=== PATIENT | male | born 1945 | race African-American/Black ===

== ENCOUNTER 2017-04-14 17:46 | Inpatient (IN) | payer MEDICARE, OTHER ==
[~2017-04-14] VITALS: Ht 172.7 cm; Wt 79.5 kg
[~2017-04-14 17:46] MED LIST: AMBI5TAB PO; ATOR10 PO; GABA300C3 PO; HYDR-3129 PO; LISI10 PO; NEUR100C PO; PERC10TA27 PO; PROT40TA PO
[2017-04-14 17:59] VITALS: BP 181/95; PULSE 115; RESP 16; O2SAT 98
--- NOTE | 2017-04-14 18:14 | PD ---
HPI Chief Complaint: Fall Time Seen by Provider: 18:04 Travel History International Travel<30 days: No Contact w/Intl Traveler<30days: No Traveled to known affect area: No History of Present Illness HPI 72-year-old male came to the emergency room with history of fall from a standing position 17 hours ago. Since then patient was laying on the floor prone unable to get out. He lives alone and was eventually found down and 911 was called. He was soaked in urine as per the paramedics. He was awake. Patient is very hard of hearing and at this point is a questionable reliability of history. He was complaining of neck pain and left-sided pain. Patient was tachycardic and hypertensive upon arrival. Patient usually is ambulatory. He lives by himself. PFSH Past Medical History Narrative Medical List of his past medical, surgical, social and family history was reviewed from the nursing note. Arthritis: Yes Asthma: No Blood Disorders: No Anxiety: No Depression: No Heart Rhythm Problems: No Cancer: No Cardiovascular Problems: Yes (htn) High Cholesterol: Yes Chemotherapy: No Chest Pain: No Congestive Heart Failure: No COPD: No Cerebrovascular Accident: Yes Diabetes: No Diminished Hearing: Yes (ALATNA) Endocrine: No Genitourinary: No Hypertension: Yes Immune Disorder: No Musculoskeletal: Yes (ARTHRITIS ) Neurologic: Yes (IN PT'S CHART IT STATES HX OF CVA, FAMILY DENIES) Psychiatric: No Reproductive: No Respiratory: No Radiation Therapy: No Sleep Apnea: No Thyroid Disease: No Influenza Vaccination: No Past Surgical History Other Surgery: Yes (cervical ) Social History Alcohol Use: No Tobacco Use: Yes (1 pack per week) Substance Use: No Allergies-Medications (Allergen,Severity, Reaction): Coded Allergies: prednisone (Unverified Allergy, Severe, HICCUPING, 04/15/17) penicillin G (Unverified Allergy, Mild, Hives, 04/15/17) Comments List of his allergies reviewed from the nursing note. Reported Meds & Prescriptions Reported Meds & Active Scripts Active Active Prescriptions or Reported Medications Unobtainable Narrative Medication List of his home medications reviewed from the nursing note. Review of Systems Except as stated in HPI: all other systems reviewed are Neg Physical Exam Narrative GENERAL: Awake, alert, very hard of hearing, moderate distress SKIN: Focused skin assessment warm/dry. Stage 1 decubitus on the right and left subcostal margins and Stage 3 decubitus on the left tibial tubercle. HEAD: Atraumatic. Normocephalic. EYES: Pupils equal and round. No scleral icterus. No injection or drainage. ENT: No nasal bleeding or discharge. Mucous membranes pink and moist. NECK: Trachea midline. No JVD. Patient has a c-collar on his back CARDIOVASCULAR: Regular rate and rhythm. No murmur appreciated. RESPIRATORY: No accessory muscle use. Clear to auscultation. Breath sounds equal bilaterally. GASTROINTESTINAL: Abdomen soft, non-tender, nondistended. Hepatic and splenic margins not palpable. MUSCULOSKELETAL: No obvious deformities. No clubbing. No cyanosis. No edema. NEUROLOGICAL: Awake and alert. No obvious cranial nerve deficits. Motor strength in bilateral lower extremity is 2 out of 5 mostly because of pain. Normal speech. PSYCHIATRIC: Appropriate mood and affect; insight and judgment normal. Data Data Last Documented VS Vital Signs Date Time Temp Pulse Resp B/P Pulse Ox O2 Delivery O2 Flow Rate FiO2 04/14/17 17:59 115 16 181/95 98 Room Air Orders Electrocardiogram (04/14/17 18:22) Complete Blood Count With Diff (04/14/17 18:22) Comprehensive Metabolic Panel (04/14/17 18:22) Creatine Kinase (Cpk) (04/14/17 18:22) Prothrombin Time / Inr (Pt) (04/14/17 18:22) Troponin I (04/14/17 18:22) Urinalysis - C+S If Indicated (04/14/17 18:22) Chest, Single Ap (04/14/17 18:22) Ct Brain W/O Iv Contrast(Rout) (04/14/17 18:22) Blood Glucose (04/14/17 18:22) Ecg Monitoring (04/14/17 18:22) Iv Access Insert/Monitor (04/14/17 18:22) Oximetry (04/14/17 18:22) Sodium Chloride 0.9% Flush (Ns Flush) (04/14/17 18:30) Sodium Chlor 0.9% 1000 Ml Inj (Ns 1000 M (04/14/17 18:22) Ct Cerv Spine W/O Contrast (04/14/17 ) Morphine Inj (Morphine Inj) (04/14/17 19:15) Pelvis, Ap Only (Routine) (04/14/17 ) Aspirin Chew (Aspirin Chew) (04/14/17 20:00) Nitroglycerin 2% Oint (Nitroglycerin 2% (04/14/17 20:00) CKMB (04/14/17 18:40) CKMB% (04/14/17 18:40) Admit Order (Ed Use Only) (04/14/17 20:19) Labs Laboratory Tests Test 04/14/17 18:40 White Blood Count 9.2 TH/MM3 Red Blood Count 4.96 MIL/MM3 Hemoglobin 13.8 GM/DL Hematocrit 42.2 % Mean Corpuscular Volume 85.0 FL Mean Corpuscular Hemoglobin 27.9 PG Mean Corpuscular Hemoglobin 32.8 % Concent Red Cell Distribution Width 14.1 % Platelet Count 191 TH/MM3 Mean Platelet Volume 9.6 FL Neutrophils (%) (Auto) 80.0 % Lymphocytes (%) (Auto) 12.6 % Monocytes (%) (Auto) 7.1 % Eosinophils (%) (Auto) 0.1 % Basophils (%) (Auto) 0.2 % Neutrophils # (Auto) 7.3 TH/MM3 Lymphocytes # (Auto) 1.2 TH/MM3 Monocytes # (Auto) 0.6 TH/MM3 Eosinophils # (Auto) 0.0 TH/MM3 Basophils # (Auto) 0.0 TH/MM3 CBC Comment DIFF FINAL Differential Comment Prothrombin Time 11.2 SEC Prothromb Time International 1.0 RATIO Ratio Urine Color YELLOW Urine Turbidity CLEAR Urine pH 5.5 Urine Specific [place] 1.016 Urine Protein 30 mg/dL Urine Glucose (UA) NEG mg/dL Urine Ketones 80 mg/dL Urine Occult Blood SMALL Urine Nitrite NEG Urine Bilirubin NEG Urine Urobilinogen LESS THAN 2.0 MG/DL Urine Leukocyte Esterase NEG Urine RBC 1 /hpf Urine WBC 1 /hpf Urine Squamous Epithelial <1 /hpf Cells Microscopic Urinalysis Comment CATH-CULT NOT IND Sodium Level 137 MEQ/L Potassium Level 4.1 MEQ/L Chloride Level 103 MEQ/L Carbon Dioxide Level 23.7 MEQ/L Anion Gap 10 MEQ/L Blood Urea Nitrogen 21 MG/DL Creatinine 1.07 MG/DL Estimat Glomerular Filtration 82 ML/MIN Rate Random Glucose 85 MG/DL Calcium Level 8.9 MG/DL Total Bilirubin 0.4 MG/DL Aspartate Amino Transf 68 U/L (AST/SGOT) Alanine Aminotransferase 28 U/L (ALT/SGPT) Alkaline Phosphatase 97 U/L Total Creatine Kinase 2508 U/L Creatine Kinase MB 57.5 NG/ML Creatine Kinase MB % 2.3 % Troponin I 0.06 NG/ML Total Protein 8.1 GM/DL Albumin 3.4 GM/DL MDM Medical Decision Making Medical Screen Exam Complete: Yes Emergency Medical Condition: Yes Medical Record Reviewed: Yes Differential Diagnosis UTI, rhabdomyolysis, lateral right abnormality, intracranial bleed Narrative Course 7:12 PM awaiting for the CT head and C-spine. Awaiting for the blood test result. Case has been signed over to the oncoming ER physician. He will require to be admitted given his disability currently. Patient has been given a liter of IV fluid bolus and pain medication. Procedures EKG Prior to Arrival: No Scripts Unable to Obtain Active Prescriptions or Reported Meds Primitivo Rios MD Apr 14, 2017 18:14
[2017-04-14] MEDS ORDERED: SODIUM CHLOR 0.9% 1000 ML INJ 1,000 ML IV SCH (18:22)
[2017-04-14] MEDS ORDERED: SODIUM CHLORIDE 0.9% FLUSH 5 ML FLUSH IV FLUSH PRN (18:30)
--- NOTE | 2017-04-14 18:49 | RADRPT ---
EXAM DATE/TIME: 04/14/2017 18:18 [facility] COMPARISON: CHEST SINGLE AP, April 21, 2015, 14:58. INDICATIONS : Syncope MEDICAL HISTORY : None. SURGICAL HISTORY : None. ENCOUNTER: Initial ACUITY: 1 day PAIN SCORE: 0/10 LOCATION: chest FINDINGS: Trace consolidation seen both lung bases, left slightly more so than right. No pleural effusion seen. No pneumothorax. Heart size stable, upper limits of normal. CONCLUSION: Minimal bibasilar consolidation. Ziyad Peña MD on April 14, 2017 at 18:46 Board Certified Radiologist. This report was verified electronically.
[2017-04-14 19:03] LABS: BLOOD, URINE SMALL (NEG); COMMENT (UR) CATH-CULT NOT IND; CULTURE IF INDICATED CATH CULTURE NOT IND; GLUCOSE,URINE NEG (NEG); KETONE, URINE 80 mg/dL (NEG); NITRITE,URINE NEG (NEG); PH, URINE 5.5 (5.0-8.5); SQUAMOUS EPITHELIAL CELL URINE <1 /hpf (0-5); URINE COLOR YELLOW (YELLW/STRAW)
[2017-04-14 19:06] LABS: AUTOMATED NEUTROPHIL # 7.3 TH/MM3 (1.8-7.7); BASOPHIL % 0.2 % (0.0-2.0); EOSINOPHIL % 0.1 % (0.0-4.0); HEMATOCRIT 42.2 % (39.0-51.0); HEMO FLAGS DIFF FINAL; LYMPH % 12.6 % (9.0-44.0); LYMPHOCYTE # 1.2 TH/MM3 (1.0-4.8); MEAN CORPUSCULAR HEMOGLOBIN 27.9 PG (27.0-34.0); MEAN CORPUSCULAR HGB CONC 32.8 % (32.0-36.0); MONO % 7.1 % (0.0-8.0); PLATELET COUNT 191 TH/MM3 (150-450); RED BLOOD COUNT 4.96 MIL/MM3 (4.50-5.90); RED CELL DISTRIBUTION WIDTH 14.1 % (11.6-17.2); WHITE BLOOD COUNT 9.2 TH/MM3 (4.0-11.0)
--- NOTE | 2017-04-14 19:07 | PD ---
Physical Exam Narrative General: The patient is a well-developed well-nourished male, extremely hard of hearing, however and no other acute distress. When asked if he has pain he reports that he has pain all over.. Head and Neck exam: Head is normocephalic atraumatic. Eyes: EOMI, pupils are equal round and reactive to light. Nose: Midline septum with pink mucous membranes Mouth: Dentition unremarkable. Moist mucus membranes. Posterior oropharynx is not erythematous. No tonsillar hypertrophy. Uvula midline. Airway patent. Neck: No palpable lymphadenopathy. No nuchal rigidity. No thyromegaly. No spinous process tenderness to palpation. Does have a cervical collar in place related to his fall. Cardiovascular: Sinus tachycardia in the low 100 without murmurs, gallops, or rubs. No pulse deficit to the extremities and simultaneous auscultation and palpation of his radial artery. Lungs: Clear to auscultation bilaterally. No wheezes, rhonchi, or rales. Abdomen: Soft, without tenderness to palpation in all 4 quadrants of the abdomen. No guarding, rebound, or rigidity. Normal bowel sounds are audible. No tenderness on palpation of McBurney's point. Negative Beacon sign. Extremities: No clubbing, cyanosis, or edema. 2+ pulses in all 4 extremities. No calf tenderness on palpation. No deformity or crepitus on examination of upper and lower extremities. The patient reports having muscle tenderness on palpation of the muscles of the biceps and triceps bilaterally. The patient also reports having tenderness on palpation along the musculature of the quadriceps bilaterally. Neurologic Exam: Cranial nerves 2-12 were intact on exam. Strength is 4/5 in all 4 extremities. No sensory deficits noted. Skin Exam: No rash noted. Intact skin that is warm and dry. Data Data Last Documented VS Vital Signs Date Time Temp Pulse Resp B/P Pulse Ox O2 Delivery O2 Flow Rate FiO2 04/14/17 17:59 115 16 181/95 98 Room Air Orders Electrocardiogram (04/14/17 18:22) Complete Blood Count With Diff (04/14/17 18:22) Comprehensive Metabolic Panel (04/14/17 18:22) Creatine Kinase (Cpk) (04/14/17 18:22) Prothrombin Time / Inr (Pt) (04/14/17 18:) Troponin I (04/14/17 18:22) Urinalysis - C+S If Indicated (04/14/17 18:22) Chest, Single Ap (04/14/17 18:22) Ct Brain W/O Iv Contrast(Rout) (04/14/17 18:22) Blood Glucose (04/14/17 18:22) Ecg Monitoring (04/14/17 18:22) Iv Access Insert/Monitor (04/14/17 18:22) Oximetry (04/14/17 18:22) Sodium Chloride 0.9% Flush (Ns Flush) (04/14/17 18:30) Sodium Chlor 0.9% 1000 Ml Inj (Ns 1000 M (04/14/17 18:22) Ct Cerv Spine W/O Contrast (04/14/17 ) Morphine Inj (Morphine Inj) (04/14/17 19:15) Pelvis, Ap Only (Routine) (04/14/17 ) Aspirin Chew (Aspirin Chew) (04/14/17 20:00) Nitroglycerin 2% Oint (Nitroglycerin 2% (04/14/17 20:00) CKMB (04/14/17 18:40) CKMB% (04/14/17 18:40) Admit Order (Ed Use Only) (04/14/17 20:19) Labs Laboratory Tests Test 04/14/17 18:40 White Blood Count 9.2 TH/MM3 Red Blood Count 4.96 MIL/MM3 Hemoglobin 13.8 GM/DL Hematocrit 42.2 % Mean Corpuscular Volume 85.0 FL Mean Corpuscular Hemoglobin 27.9 PG Mean Corpuscular Hemoglobin 32.8 % Concent Red Cell Distribution Width 14.1 % Platelet Count 191 TH/MM3 Mean Platelet Volume 9.6 FL Neutrophils (%) (Auto) 80.0 % Lymphocytes (%) (Auto) 12.6 % Monocytes (%) (Auto) 7.1 % Eosinophils (%) (Auto) 0.1 % Basophils (%) (Auto) 0.2 % Neutrophils # (Auto) 7.3 TH/MM3 Lymphocytes # (Auto) 1.2 TH/MM3 Monocytes # (Auto) 0.6 TH/MM3 Eosinophils # (Auto) 0.0 TH/MM3 Basophils # (Auto) 0.0 TH/MM3 CBC Comment DIFF FINAL Differential Comment Prothrombin Time 11.2 SEC Prothromb Time International 1.0 RATIO Ratio Urine Color YELLOW Urine Turbidity CLEAR Urine pH 5.5 Urine Specific [place] 1.016 Urine Protein 30 mg/dL Urine Glucose (UA) NEG mg/dL Urine Ketones 80 mg/dL Urine Occult Blood SMALL Urine Nitrite NEG Urine Bilirubin NEG Urine Urobilinogen LESS THAN 2.0 MG/DL Urine Leukocyte Esterase NEG Urine RBC 1 /hpf Urine WBC 1 /hpf Urine Squamous Epithelial <1 /hpf Cells Microscopic Urinalysis Comment CATH-CULT NOT IND Sodium Level 137 MEQ/L Potassium Level 4.1 MEQ/L Chloride Level 103 MEQ/L Carbon Dioxide Level 23.7 MEQ/L Anion Gap 10 MEQ/L Blood Urea Nitrogen 21 MG/DL Creatinine 1.07 MG/DL Estimat Glomerular Filtration 82 ML/MIN Rate Random Glucose 85 MG/DL Calcium Level 8.9 MG/DL Total Bilirubin 0.4 MG/DL Aspartate Amino Transf 68 U/L (AST/SGOT) Alanine Aminotransferase 28 U/L (ALT/SGPT) Alkaline Phosphatase 97 U/L Total Creatine Kinase 2508 U/L Creatine Kinase MB 57.5 NG/ML Creatine Kinase MB % 2.3 % Troponin I 0.06 NG/ML Total Protein 8.1 GM/DL Albumin 3.4 GM/DL [facility] Medical Record Reviewed: Yes Supervised Visit with ROBBIE: No Interpretation(s) Last Impressions Head CT 04/14/171821 Signed Impressions: Service Date/Time: Friday, April 14, 2017 18:46 - CONCLUSION: 1. No acute intracranial abnormality. 2. Chronic white matter changes. 3. 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 4. Sinus disease. Ziyad Peña MD Chest X-Ray 04/14/171821 Signed Impressions: Service Date/Time: Friday, April 14, 2017 18:18 - CONCLUSION: Minimal bibasilar consolidation. Ziyad Peña MD Cervical Spine CT 04/14/17 0000 Signed Impressions: Service Date/Time: Friday, April 14, 2017 18:46 - CONCLUSION: Surgical and degenerative changes of the cervical spine as above again noted. No fracture or subluxation or other acute abnormality. Ziyad Peña MD Narrative Course During the course of the patients emergency department visit, the patients history, examination, and differential diagnosis were reviewed with the patient. The patient had IV access obtained and blood work sent for analysis. The patient's case was checked out to me by Dr. Rios. Please see her complete history and physical. The patient had an EKG done on arrival. The patient's EKG shows a sinus tachycardia rate of [address]-T wave abnormalities that are nonspecific, no acute ST segment elevation is noted. QRS duration is 97 ms, QTC 387 ms. The patient was initially provided normal saline 1 L IV fluid bolus. The patients laboratory studies were reviewed and remarkable for a white count of 9.2, hemoglobin 13.8, platelets 191 with 80.0 neutrophils, CMP is remarkable for a BUN of 21, GFR of 82, AST 68, troponin I 0.06, albumin 3.4. The patient denies having any chest pain at this time. He denies having any shortness of breath. The patient was placed on aspirin 162 mg by mouth 1, nitroglycerin 1 inch the chest wall. Urinalysis shows 30 protein, 80 ketones, small occult blood. PT 11.2, INR 1.0, CPK came back elevated at 2508 with an MB percent of 2.3. Radiology studies were reviewed and remarkable for a chest x-ray that shows minimal bibasilar consolidation, atelectasis or infiltrate. Pelvis x-ray shows an intact pelvis. CT scan of the brain shows no acute intracranial abnormality , chronic white matter changes, old right frontal lobe and right cerebellar infarcts, sinus disease noted. CT scan of the C-spine shows surgical and degenerative changes of the cervical spine, no fracture or subluxation or other acute abnormality. The patients results were discussed with the patient, including the plan of care. I explained that further testing and/ or monitoring is indicated based on the patients history, examination, and/ or laboratory findings. Therefore, I recommended admission for additional evaluation. The patient expressed understanding and was agreeable with this plan. The patient was admitted to the hospital in stable condition and [facility] Physician Communication Physician Communication The patient's case is discussed with Dr. Akins who did agree to admit the patient for further evaluation and treatment at this time. Diagnosis Primary Impression: Fall Qualified Code: W19.XXXA - Fall, initial encounter Additional Impressions: Generalized weakness Rhabdomyolysis Qualified Code: T79.6XXA - Traumatic rhabdomyolysis, initial encounter Admitting Information Admitting Physician Requests: Admit Scripts Unable to Obtain Active Prescriptions or Reported Meds Tiago,Cheyanne D. MD Apr 14, 2017 19:07
--- NOTE | 2017-04-14 19:09 | RADRPT ---
EXAM DATE/TIME: 04/14/2017 18:46 [facility] COMPARISON: CT BRAIN W/O CONTRAST, June 23, 2015, 16:42. INDICATIONS : Fall last night RADIATION DOSE: 58.62 CTDIvol (mGy) MEDICAL HISTORY : Cerebrovascular disease. Hypertension. Arthritis.Cardio SURGICAL HISTORY : Orthopedic ENCOUNTER: Initial ACUITY: 1 day PAIN SCALE: 8/10 LOCATION: cranial TECHNIQUE: Multiple contiguous axial images were obtained of the head. Using automated exposure control and adj ustment of the mA and/or kV according to patient size, radiation dose was kept as low as reasonably a chievable to obtain optimal diagnostic quality images. DICOM format image data is available electro nically for review and comparison. FINDINGS: No intracranial hemorrhage or hematoma. No mass, mass effect or midline shift. Areas of encephalomala stefany compatible with old infarcts again seen, right frontal lobe and in the right cerebellum. There is chronic low-attenuation in the periventricular white matter. Mucoperiosteal thickening seen of the visualized left maxillary air cell. CONCLUSION: 1. No acute intracranial abnormality. 2. Chronic white matter changes. 3. 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 4. Sinus disease. Ziyad Peña MD on April 14, 2017 at 19:06 Board Certified Radiologist. This report was verified electronically.
[2017-04-14 19:10] LABS: PROTHROMBIN TIME - PATIENT 11.2 SEC (9.8-11.6)
[2017-04-14] MEDS ORDERED: MORPHINE SULFATE 4 MG/ML INJ IV PUSH ONE (19:15)
--- NOTE | 2017-04-14 19:19 | RADRPT ---
EXAM DATE/TIME: 04/14/2017 18:46 [facility] COMPARISON: CT CERVICAL SPINE W/O CONTRAST, June 23, 2015, 16:42. INDICATIONS : Fall last night RADIATION DOSE: 20.26 CTDIvol (mGy) MEDICAL HISTORY : Arthritis. Cardiovascular disease Cerebrovascular disease.HTN SURGICAL HISTORY : Orthopedic ENCOUNTER: Initial ACUITY: 1 day PAIN SCALE: 8/10 LOCATION: neck TECHNIQUE: Volumetric scanning of the cervical spine was performed. Multiplanar reconstructions in the sagittal, coronal and oblique axial planes were performed. Using automated exposure control and adjustment o f the mA and/or kV according to patient size, radiation dose was kept as low as reasonably achievable to obtain optimal diagnostic quality images. DICOM format image data is available electronically f or review and comparison. FINDINGS: Cervical spine alignment is normal. No fracture seen paravertebral bodies have normal height. Mild disc space narrowing with left greater than right uncovertebral and facet osteoarthritis again s een at C2/C3. There is moderate to severe disc space narrowing with mild to moderate uncovertebral fa cet osteoarthritis at C5/C6. Previous discectomy/corpectomy with interbody and anterior instrumentation noted at C3/C4 and C4/C5, both levels solidly fused in normal alignment. CONCLUSION: Surgical and degenerative changes of the cervical spine as above again noted. No fracture or subluxat ion or other acute abnormality. Ziyad Peña MD on April 14, 2017 at 19:16 Board Certified Radiologist. This report was verified electronically.
[2017-04-14 19:27] LABS: ANION GAP 10 MEQ/L (5-15); AST (GOT) 68 U/L (15-37); BICARBONATE 23.7 MEQ/L (21.0-32.0); BLOOD UREA NITROGEN 21 MG/DL (7-18); CHLORIDE 103 MEQ/L (98-107); GLOMERULAR FILTRATION RATE 82 ML/MIN (>89); POTASSIUM 4.1 MEQ/L (3.5-5.1); SODIUM (NA) 137 MEQ/L (136-145)
[2017-04-14 19:28] LABS: ALT (GPT) 28 U/L (12-78)
[2017-04-14 19:31] LABS: ALKALINE PHOSPHATASE 97 U/L (45-117); TOTAL BILIRUBIN ADULT 0.4 MG/DL (0.2-1.0)
[2017-04-14 19:57] LABS: CREATINE KINASE 2508 U/L (39-308)
[2017-04-14] MEDS ORDERED: NITROGLYCERIN 2% OINT 1 GM PACKET TOPICAL ONE (20:00)
[2017-04-14] MEDS ORDERED: ASPIRIN 81 MG CHEW TAB CHEW ONE (20:00)
--- NOTE | 2017-04-14 20:04 | RADRPT ---
EXAM DATE/TIME: 04/14/2017 19:38 [facility] COMPARISON: No previous studies available for comparison. INDICATIONS : Evaluate pelvis for trauma, fell MEDICAL HISTORY : Arthritis. Cardiovascular disease Cerebrovascular disease.HTN SURGICAL HISTORY : Orthopedic ENCOUNTER: Initial ACUITY: 1 day PAIN SCORE: 0/10 LOCATION: Pelvis FINDINGS: A single frontal view of the pelvis demonstrates no evidence of fracture. The bony pelvic ring is in tact. Bony mineralization is normal. The soft tissues are intact. CONCLUSION: Intact pelvis. Ziyad Peña MD on April 14, 2017 at 20:03 Board Certified Radiologist. This report was verified electronically.
[2017-04-14 20:21] LABS: CKMB 57.5 NG/ML (0.5-3.6)
[2017-04-14 20:45] VITALS: BP 199/84; PULSE 114; RESP 20; TEMP 98.6; O2SAT 98
[2017-04-14] MEDS ORDERED: SODIUM CHLORIDE 0.9% FLUSH 10 ML FLUSH IV FLUSH PRN (20:45)
[2017-04-14] MEDS ORDERED: NALOXONE HCL 0.4 MG/ML AMP IV PRN (20:45)
--- NOTE | 2017-04-14 21:13 | HHI.HP ---
[facility] Service [facility] Primary Care Physician Ziyad Allen MD Admission Diagnosis Fall, Rhabdomyolysis, generalized weakness Diagnoses: Travel History International Travel<30 Days: No Contact w/Intl Traveler <30 Da: No Traveled to Known Affected Are: No History of Present Illness History from patient, ER physician communication, and review of medical records. Patient reported that he had fallen down at home and was not able to get up. He initially told me that he was walking to the bathroom and fell backwards and hit his head. Later he stated he may have fallen from the bed itself. He denies being on blood thinners. He however does not remember the exact names and doses of his medications. He states he takes lisinopril. He denies any premonitory symptoms prior to the fall such as chest pain/ palpitations/dizziness/visual disturbance/focal weakness. He denies tripping on anything that he could be collapsed. He reports he missed a pain on the floor for more than 12 hours. He states his sister called 911. Patient states that he was taught able to get up from the floor at all. He thinks he is weak all over. He states he usually uses a walker. He lives alone. Apart from the above, patient denies any recent fever/nausea/vomiting/diarrhea/ urinary burning or pain on urination. He denies any hematemesis/hematochezia/melena/hematuria. He does report of cough. He is noted to be coughing during examination as well. He reports that his cough is yellowish and greenish in color. Review of Systems Except as stated in HPI: all other systems reviewed are Neg Past Family Social History Past Medical History Hypertension Hyperlipidemia Possible vertigopatient reports he takes a medicine for dizziness on a when necessary basis. Hard of hearing Past Surgical History Cervical spine surgery Allergies: Coded Allergies: prednisone (Unverified Allergy, Severe, HICCUPING, 04/15/17) penicillin G (Unverified Allergy, Mild, Hives, 04/15/17) Family History Denies any family history of any medical conditions. Social History States he used to smoke. Quit about 6 months ago. Denies any alcohol abuse or drug abuse. Physical Exam Vital Signs Vital Signs Date Time Temp Pulse Resp B/P Pulse Ox O2 Delivery O2 Flow Rate FiO2 04/14/17 20:49 20 04/14/17 20:45 98.6 114 20 199/84 98 Room Air 04/14/17 17:59 115 16 181/95 98 Room Air Physical Exam GENERAL: This is elderly gentleman, lying in bed, not in acute distress. BP 170/ 82, saturation 98% on RA . Coughing during examination SKIN: No rashes, ecchymoses or lesions. Cool and dry. HEAD: Atraumatic. Normocephalic. No temporal or scalp tenderness. EYES: No scleral icterus. No injection or drainage. ENT: Nose without bleeding, purulent drainage or septal hematoma. Airway patent. NECK: Trachea midline. No JVD Supple, nontender, no meningeal signs. CARDIOVASCULAR: tachycardic 108, regular rhythm without murmurs, gallops, or rubs. RESPIRATORY: Clear to auscultation. Breath sounds equal bilaterally. No wheezes , rales, or rhonchi. Limited exam due to pt's body position lying flat on bed and with pain even on minimal movement GASTROINTESTINAL: Abdomen soft, non-tender, nondistended. . No guarding. MUSCULOSKELETAL: Extremities without clubbing, cyanosis, or edema. No joint tenderness, effusion, or edema noted. bilateral UE and LE with pain even on minimal movement and touch NEUROLOGICAL: Awake and alert. Motor and sensory grossly within normal limits. Normal speech. Laboratory Laboratory Tests Test 04/14/17 18:40 White Blood Count 9.2 Red Blood Count 4.96 Hemoglobin 13.8 Hematocrit 42.2 Mean Corpuscular Volume 85.0 Mean Corpuscular Hemoglobin 27.9 Mean Corpuscular Hemoglobin 32.8 Concent Red Cell Distribution Width 14.1 Platelet Count 191 Mean Platelet Volume 9.6 Neutrophils (%) (Auto) 80.0 Lymphocytes (%) (Auto) 12.6 Monocytes (%) (Auto) 7.1 Eosinophils (%) (Auto) 0.1 Basophils (%) (Auto) 0.2 Neutrophils # (Auto) 7.3 Lymphocytes # (Auto) 1.2 Monocytes # (Auto) 0.6 Eosinophils # (Auto) 0.0 Basophils # (Auto) 0.0 CBC Comment DIFF FINAL Differential Comment Prothrombin Time 11.2 Prothromb Time International 1.0 Ratio Urine Color YELLOW Urine Turbidity CLEAR Urine pH 5.5 Urine Specific [place] 1.016 Urine Protein 30 Urine Glucose (UA) NEG Urine Ketones 80 Urine Occult Blood SMALL Urine Nitrite NEG Urine Bilirubin NEG Urine Urobilinogen LESS THAN 2.0 Urine Leukocyte Esterase NEG Urine RBC 1 Urine WBC 1 Urine Squamous Epithelial <1 Cells Microscopic Urinalysis Comment CATH-CULT NOT IND Sodium Level 137 Potassium Level 4.1 Chloride Level 103 Carbon Dioxide Level 23.7 Anion Gap 10 Blood Urea Nitrogen 21 Creatinine 1.07 Estimat Glomerular Filtration 82 Rate Random Glucose 85 Calcium Level 8.9 Total Bilirubin 0.4 Aspartate Amino Transf 68 (AST/SGOT) Alanine Aminotransferase 28 (ALT/SGPT) Alkaline Phosphatase 97 Total Creatine Kinase 2508 Creatine Kinase MB 57.5 Creatine Kinase MB % 2.3 Troponin I 0.06 Total Protein 8.1 Albumin 3.4 Result Diagram: 04/14/17 1840 04/14/17 1840 Imaging Last [address] 04/14/171821 Signed Impressions: Service Date/Time: Friday, April 14, 2017 18:46 - CONCLUSION: 1. No acute intracranial abnormality. 2. Chronic white matter changes. 3. 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 4. Sinus disease. Ziyad Peña MD Chest X-Ray 04/14/171821 Signed Impressions: Service Date/Time: Friday, April 14, 2017 18:18 - CONCLUSION: Minimal bibasilar consolidation. Ziyad Peña MD Pelvis X-Ray 04/14/17 0000 Signed Impressions: Service Date/Time: Friday, April 14, 2017 19:38 - CONCLUSION: Intact pelvis. Ziyad Peña MD Cervical Spine CT 04/14/17 0000 Signed Impressions: Service Date/Time: Friday, April 14, 2017 18:46 - CONCLUSION: Surgical and degenerative changes of the cervical spine as above again noted. No fracture or subluxation or other acute abnormality. Ziyad Peña MD Assessment and Plan Assessment and Plan Impression: Status post fall Rhabdomyolysis Tachycardia Pneumoniawith chest x-ray evidence of bilateral consolidations Plan fall precautions pt consult ooob to chair iv hydration will follow cpk Discussed Condition With patient Physician Certification 2 Midnight Certification Type: Admission for Inpatient Services Order for Inpatient Services The services are ordered in accordance with Medicare regulations or non- Medicare payer requirements, as applicable. In the case of services not specified as inpatient-only, they are appropriately provided as inpatient services in accordance with the 2-midnight benchmark. Estimated LOS (days): 3 days is the estimated time the patient will need to remain in the hospital, assuming treatment plan goals are met and no additional complications. Post-Hospital Plan: Home Marcos Akins MD Apr 14, 2017 21:13
[2017-04-14 21:18] VITALS: BP 172/82; PULSE 120; RESP 20
[2017-04-14] MEDS: SODIUM CHLOR 0.9% 1000 ML INJ 1,000 ML IV SCH (21:30)
[2017-04-14] MEDS: LEVOFLOXACIN 750 MG PREMIX INJ 150 ML IV SCH (22:00)
[2017-04-14 22:02] VITALS: BP 133/66; PULSE 109; RESP 20; O2SAT 99
[2017-04-14] MEDS: SODIUM CHLORIDE 0.9% FLUSH 10 ML FLUSH IV FLUSH SCH (22:37)
[2017-04-15] VITALS: BP 138/66; PULSE 104; PULSE 119; RESP 18; TEMP 99.4; O2SAT 97
[2017-04-15 04:00] VITALS: BP 123/72; PULSE 88; PULSE 89; RESP 19; TEMP 96.7; O2SAT 97
--- NOTE | 2017-04-15 05:09 | EKG ---
Date Performed: 04/14/2017 Time Performed: 19:10:43 PTAGE: 72 years EKG: SINUS TACHYCARDIA Nonspecific ST and T wave abnormalities ABNORMAL ECG Compared to the PREVIOUS TRACING rate has increased PREVIOUS TRACIN04/13/2015 04.37 DOCTOR: Manolo Richard Interpretating Date/Time 04/15/2017 05:07:25
[2017-04-15 07:41] LABS: AUTOMATED NEUTROPHIL # 2.8 TH/MM3 (1.8-7.7); BASOPHIL % 0.3 % (0.0-2.0); EOSINOPHIL # 0.1 TH/MM3 (0-0.4); EOSINOPHIL % 1.4 % (0.0-4.0); HEMATOCRIT 34.9 % (39.0-51.0); HEMO FLAGS DIFF FINAL; LYMPH % 30.5 % (9.0-44.0); LYMPHOCYTE # 1.6 TH/MM3 (1.0-4.8); MEAN CORPUSCULAR HEMOGLOBIN 27.9 PG (27.0-34.0); MEAN CORPUSCULAR HGB CONC 33.3 % (32.0-36.0); MONO % 13.7 % (0.0-8.0); NEUT % 54.1 % (16.0-70.0); PLATELET COUNT 168 TH/MM3 (150-450); RED BLOOD COUNT 4.15 MIL/MM3 (4.50-5.90); RED CELL DISTRIBUTION WIDTH 14.3 % (11.6-17.2); WHITE BLOOD COUNT 5.2 TH/MM3 (4.0-11.0)
[2017-04-15 08:00] VITALS: BP 135/71; PULSE 95; RESP 20; TEMP 98.6; O2SAT 97
--- NOTE | 2017-04-15 08:07 | HHI.PR ---
Subjective Remarks in no acute distress. complaining of some pain to the right shoulder. afebrile. d/w the RN. Objective Vitals Vital Signs Date Time Temp Pulse Resp B/P Pulse Ox O2 Delivery O2 Flow Rate FiO2 04/15/17 04:00 96.7 88 19 123/72 97 04/15/17 04:00 89 04/15/17 00:00 119 04/15/17 00:00 99.4 104 18 138/66 97 04/14/17 22:50 97 Room Air 04/14/17 22:02 109 20 133/66 99 Room Air 04/14/17 21:18 120 20 172/82 Room Air 04/14/17 20:49 20 04/14/17 20:45 98.6 114 20 199/84 98 Room Air 04/14/17 17:59 115 16 181/95 98 Room Air I/O 04/14/17 04/14/17 04/14/17 04/15/17 04/15/17 04/15/17 07:00 15:00 23:00 07:00 15:00 23:00 Intake Total 1280 ml Output Total 550 ml Balance 730 ml Intake Oral 480 ml IV Total 800 ml Output Urine Total 550 ml Result Diagram: 04/15/17 0644 04/14/17 1840 Imaging Last Impressions Head CT 04/14/171821 Signed Impressions: Service Date/Time: Friday, April 14, 2017 18:46 - CONCLUSION: 1. No acute intracranial abnormality. 2. Chronic white matter changes. 3. 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 4. Sinus disease. Ziyad Peña MD Chest X-Ray 04/14/171821 Signed Impressions: Service Date/Time: Friday, April 14, 2017 18:18 - CONCLUSION: Minimal bibasilar consolidation. Ziyad Peña MD Pelvis X-Ray 04/14/17 0000 Signed Impressions: Service Date/Time: Friday, April 14, 2017 19:38 - CONCLUSION: Intact pelvis. Ziyad Peña MD Cervical Spine CT 04/14/17 0000 Signed Impressions: Service Date/Time: Friday, April 14, 2017 18:46 - CONCLUSION: Surgical and degenerative changes of the cervical spine as above again noted. No fracture or subluxation or other acute abnormality. Ziyad Peña MD Objective Remarks GENERAL: This is a well-nourished, well-developed patient, in no apparent distress. CARDIOVASCULAR: Regular rate and regular rhythm without murmurs, gallops, or rubs. RESPIRATORY: Clear to auscultation. Breath sounds equal bilaterally. No wheezes , rales, or rhonchi. GASTROINTESTINAL: Abdomen soft, non-tender, nondistended. Normal, active bowel sounds MUSCULOSKELETAL: Extremities without clubbing, cyanosis, or edema- some tenderness over the right shoulder. NEURO: Alert & Oriented x4 to person, place, time, situation. Moves all ext x4 Medications and IVs Current Medications IV Flush 2 ml 2 ml UNSCH PRN IV FLUSH FLUSH AFTER USING IV ACCESS Last administered on 04/14/17 20:45; Start 04/14/17 at 18:30; Stop 04/14/17 at 21:17 ; Status DC Sodium Chloride (NS 1000 ml Inj) 1,000 ml @ 1,000 mls/hr Q1H IV Last administered on 04/14/17 18:22; Start 04/14/17 at 18:22; Stop 04/14/17 at 19:21 ; Status DC Morphine Sulfate (Morphine Inj) 4 mg ONCE ONCE IV PUSH Last administered on 19:15; Start 04/14/17 at 19:15; Stop 04/14/17 at 19:16; Status DC Aspirin (Aspirin Chew) 162 mg ONCE ONCE CHEW Last administered on 04/14/17 20 :00; Start 04/14/17 at 20:00; Stop 04/14/17 at 20:01; Status DC Nitroglycerin (Nitroglycerin 2% Oint) 1 inch ONCE ONCE TOPICAL Last administered on 04/14/17 20:00; Start 04/14/17 at 20:00; Stop 04/14/17 at 20:01 ; Status DC Sodium Chloride (NS Flush) 2 ml UNSCH PRN IV FLUSH FLUSH AFTER USING IV ACCESS ; Start 04/14/17 at 20:45 Sodium Chloride (NS Flush) 2 ml BID IV FLUSH ; Start 04/14/17 at 21:00 Naloxone HCl 0.4 mg 0.4 mg UNSCH PRN IV SEE LABEL COMMENTS; Start 04/14/17 at 20:45 Levofloxacin/ Dextrose 150 ml @ 100 mls/hr Q24H IV Last administered on 22:00; Start 04/14/17 at 22:00 Sodium Chloride (NS 1000 ml Inj) 1,000 ml @ 100 mls/hr Q10H IV Last administered on 04/14/17 21:30; Start 04/14/17 at 21:30 A/P Assessment and Plan A/P - fall with Rhabdomyolysis fall precautions- consulted PT- continue IV fluid and monitor the renal function and CPK level -mild elevation of troponin with no chest pain or acute St-T changes-likely due to the fall and rhabdo- will continue to trend the enzymes. -right shoulder pain; start pain control- XR of the right shoulder -Pneumoniawith chest x-ray evidence of bilateral consolidations; continue antibiotics- -DVT prophylaxis with Milton Nance MD Apr 15, 2017 08:07
[2017-04-15 08:09] LABS: ANION GAP 5 MEQ/L (5-15); AST (GOT) 76 U/L (15-37); BICARBONATE 27.8 MEQ/L (21.0-32.0); BLOOD UREA NITROGEN 20 MG/DL (7-18); CHLORIDE 107 MEQ/L (98-107); GLOMERULAR FILTRATION RATE 82 ML/MIN (>89); POTASSIUM 3.5 MEQ/L (3.5-5.1); SODIUM (NA) 140 MEQ/L (136-145)
[2017-04-15] MEDS ORDERED: ACETAMINOPHEN 325 MG TAB PO PRN (08:15)
[2017-04-15 08:27] LABS: ALKALINE PHOSPHATASE 74 U/L (45-117); ALT (GPT) 26 U/L (12-78); CREATINE KINASE 3578 U/L (39-308); TOTAL BILIRUBIN ADULT 0.3 MG/DL (0.2-1.0)
[2017-04-15] MEDS: SODIUM CHLORIDE 0.9% FLUSH 10 ML FLUSH IV FLUSH SCH ×2 (08:47→21:00)
[2017-04-15] MEDS: ENOXAPARIN SODIUM 40 MG/0.4 ML SYRINGE SQ SCH (08:47)
[2017-04-15] MEDS: ACETAMINOPHEN/HYDROcodone 325 MG/5 MG TAB PO PRN ×3 (08:47→21:54)
[2017-04-15 08:48] LABS: CKMB 68.9 NG/ML (0.5-3.6)
--- NOTE | 2017-04-15 12:33 | RADRPT ---
EXAM DATE/TIME: 04/15/2017 11:31 [facility] COMPARISON: SHOULDER RIGHT LTD (2VWS), April 13, 2015, 4:55. CHEST SINGLE AP, April 21, 2015, 14:58. CHEST SI NGLE AP, April 14, 2017, 18:18. INDICATIONS : Fall, right shoulder pain. MEDICAL HISTORY : None. SURGICAL HISTORY : None. ENCOUNTER: Subsequent ACUITY: 2 days PAIN SCORE: 10/10 LOCATION: Right shoulder FINDINGS: Multiple view examination of the right shoulder demonstrates no evidence of fracture or dislocation. There is hypertrophic change at the acromioclavicular joint. There is prominent hypertrophic change at the periphery of the acromion. There is calcification seen around the greater tubercle. CONCLUSION: No acute abnormality seen. There is hypertrophic change at the acromion, the acromioclavicular joint, and to a lesser degree around the greater tubercle. Ziyad Galvan MD on April 15, 2017 at 12:28 Board Certified Radiologist. This report was verified electronically.
[2017-04-15 13:30] VITALS: BP 134/90; PULSE 96; RESP 20
[2017-04-15 16:00] VITALS: BP 150/87; PULSE 84; RESP 18; TEMP 97.4; O2SAT 98
[2017-04-15 20:00] VITALS: BP 143/76; PULSE 97; RESP 20; TEMP 98.2; O2SAT 98
[2017-04-15] MEDS: LEVOFLOXACIN 750 MG PREMIX INJ 150 ML IV SCH (21:53)
[2017-04-15] MEDS: SODIUM CHLOR 0.9% 1000 ML INJ 1,000 ML IV SCH (21:53)
[2017-04-16] VITALS (7 sets, daily range): BP systolic 121–194; BP diastolic 60–93; PULSE 73–106; RESP 20–21; TEMP 96.5–99.3; O2SAT 96–99
[2017-04-16 07:02] LABS: BICARBONATE 27.6 MEQ/L (21.0-32.0); POTASSIUM 3.6 MEQ/L (3.5-5.1)
[2017-04-16 07:36] LABS: CKMB 26.7 NG/ML (0.5-3.6)
--- NOTE | 2017-04-16 08:26 | HHI.PR ---
Subjective Remarks resting comfortably with no distress. has some pain to the right shoulder. no chest pain or sob. no other new complaints. Objective Vitals Vital Signs Date Time Temp Pulse Resp B/P Pulse Ox O2 Delivery O2 Flow Rate FiO2 04/16/17 04:00 99.3 79 20 129/60 97 04/16/17 00:00 96.9 82 20 137/74 98 04/15/17 20:00 98.2 97 20 143/76 98 04/15/17 16:00 97.4 84 18 150/87 98 04/15/17 13:30 96 20 134/90 I/O 04/15/17 04/15/17 04/15/17 04/16/17 04/16/17 04/16/17 07:00 15:00 23:00 07:00 15:00 23:00 Intake Total 1280 ml 1200 ml 480 ml 120 ml 1200 ml Output Total 550 ml 650 ml 1700 ml 600 ml Balance 730 ml 550 ml -1220 ml -480 ml 1200 ml Intake Oral 480 ml 1200 ml 480 ml 120 ml IV Total 800 ml 1200 ml Output Urine Total 550 ml 650 ml 1700 ml 600 ml Result Diagram: 04/15/17 0644 04/16/17 0539 Imaging Last Impressions Shoulder X-Ray 04/15/17 0000 Signed Impressions: Service Date/Time: Saturday, April 15, 2017 11:31 - CONCLUSION: No acute abnormality seen. There is hypertrophic change at the acromion, the acromioclavicular joint, and to a lesser degree around the greater tubercle. Ziyad Galvan MD Head CT 04/14/17 182 Signed Impressions: Service Date/Time: Friday, April 14, 2017 18:46 - CONCLUSION: 1. No acute intracranial abnormality. 2. Chronic white matter changes. 3. 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 4. Sinus disease. Ziyad Peña MD Chest X-Ray 04/14/17 182 Signed Impressions: Service Date/Time: Friday, April 14, 2017 18:18 - CONCLUSION: Minimal bibasilar consolidation. Ziyad Peña MD Pelvis X-Ray 04/14/17 0000 Signed Impressions: Service Date/Time: Friday, April 14, 2017 19:38 - CONCLUSION: Intact pelvis. Ziyad Peña MD Cervical Spine CT 04/14/17 0000 Signed Impressions: Service Date/Time: Friday, April 14, 2017 18:46 - CONCLUSION: Surgical and degenerative changes of the cervical spine as above again noted. No fracture or subluxation or other acute abnormality. Ziyad Peña MD Objective Remarks GENERAL: This is a well-nourished, well-developed patient, in no apparent distress. CARDIOVASCULAR: Regular rate and regular rhythm without murmurs, gallops, or rubs. RESPIRATORY: Clear to auscultation. Breath sounds equal bilaterally. No wheezes , rales, or rhonchi. GASTROINTESTINAL: Abdomen soft, non-tender, nondistended. Normal, active bowel sounds MUSCULOSKELETAL: Extremities without clubbing, cyanosis, or edema- some tenderness over the right shoulder. NEURO: Alert & Oriented x4 to person, place, time, situation. Moves all ext x4 Procedures none Medications and IVs Current Medications IV Flush 2 ml 2 ml UNSCH PRN IV FLUSH FLUSH AFTER USING IV ACCESS Last administered on 04/14/17 20:45; Start 04/14/17 at 18:30; Stop 04/14/17 at 21:17 ; Status DC Sodium Chloride (NS 1000 ml Inj) 1,000 ml @ 1,000 mls/hr Q1H IV Last administered on 04/14/17 18:22; Start 04/14/17 at 18:22; Stop 04/14/17 at 19:21 ; Status DC Morphine Sulfate (Morphine Inj) 4 mg ONCE ONCE IV PUSH Last administered on 19:15; Start 04/14/17 at 19:15; Stop 04/14/17 at 19:16; Status DC Aspirin (Aspirin Chew) 162 mg ONCE ONCE CHEW Last administered on 04/14/17 20 :00; Start 04/14/17 at 20:00; Stop 04/14/17 at 20:01; Status DC Nitroglycerin (Nitroglycerin 2% Oint) 1 inch ONCE ONCE TOPICAL Last administered on 04/14/17 20:00; Start 04/14/17 at 20:00; Stop 04/14/17 at 20:01 ; Status DC Sodium Chloride (NS Flush) 2 ml UNSCH PRN IV FLUSH FLUSH AFTER USING IV ACCESS ; Start 04/14/17 at 20:45 Sodium Chloride (NS Flush) 2 ml BID IV FLUSH ; Start 04/14/17 at 21:00 Naloxone HCl 0.4 mg 0.4 mg UNSCH PRN IV SEE LABEL COMMENTS; Start 04/14/17 at 20:45 Levofloxacin/ Dextrose 150 ml @ 100 mls/hr Q24H IV Last administered on 21:53; Start 04/14/17 at 22:00 Sodium Chloride (NS 1000 ml Inj) 1,000 ml @ 100 mls/hr Q10H IV Last administered on 04/15/17 21:53; Start 04/14/17 at 21:30 Acetaminophen (Tylenol) 650 mg Q4H PRN PO FEVER/PAIN 1-5; Start 04/15/17 at 08: 15 Acetaminophen/ Hydrocodone Bitart ([place] 5-325 Mg) 1 tab Q6H PRN PO PAIN 6-10 Last administered on 04/15/17 21:54; Start 04/15/17 at 08:15 Enoxaparin Sodium (Lovenox Inj) 40 mg Q24H SQ Last administered on 04/15/17 08 :47; Start 04/15/17 at 09:00 A/P Assessment and Plan A/P - fall with Rhabdomyolysis fall precautions- consulted PT- continue IV fluid and monitor the renal function and CPK level -mild elevation of troponin with no chest pain or acute St-T changes-likely due to the fall and rhabdo- -right shoulder pain; XR of the right shoulder with no acute abnormality- continue pain control- consult OT. -Pneumoniawith chest x-ray evidence of bilateral consolidations; continue antibiotics- -DVT prophylaxis with Lovenox Discharge Planning dc planning to SNF within the next couple of days if stable. Milton Singh MD Apr 16, 2017 08:26
[2017-04-16] MEDS: ACETAMINOPHEN/HYDROcodone 325 MG/5 MG TAB PO PRN ×3 (08:59→20:32)
[2017-04-16] MEDS: ENOXAPARIN SODIUM 40 MG/0.4 ML SYRINGE SQ SCH (08:59)
[2017-04-16] MEDS: SODIUM CHLORIDE 0.9% FLUSH 10 ML FLUSH IV FLUSH SCH ×2 (08:59→20:33)
[2017-04-16] MEDS: SODIUM CHLOR 0.9% 1000 ML INJ 1,000 ML IV SCH ×2 (09:12→13:30)
[2017-04-16] MEDS ORDERED: ENALAPRILAT 1.25 MG/ML VIAL IV PUSH PRN (11:45)
[2017-04-16] MEDS: amLODIPine BESYLATE 5 MG TAB PO SCH (13:42)
[2017-04-16] MEDS ORDERED: NEUR300C PO (20:07)
[2017-04-16] MEDS ORDERED: LISI-515 PO (20:07)
[2017-04-16] MEDS ORDERED: HYDR-3366 PO (20:07)
[2017-04-16] MEDS ORDERED: SIMV10TA PO (20:07)
[2017-04-16] MEDS: LEVOFLOXACIN 750 MG PREMIX INJ 150 ML IV SCH (20:33)
[2017-04-17] VITALS (10 sets, daily range): BP systolic 138–170; BP diastolic 77–84; PULSE 70–78; RESP 16–20; TEMP 97.2–98.9; O2SAT 97–98
[2017-04-17] MEDS: SODIUM CHLOR 0.9% 1000 ML INJ 1,000 ML IV SCH ×2 (00:31→12:24)
[2017-04-17] MEDS: ACETAMINOPHEN/HYDROcodone 325 MG/5 MG TAB PO PRN ×3 (03:46→14:50)
[2017-04-17] MEDS: ENOXAPARIN SODIUM 40 MG/0.4 ML SYRINGE SQ SCH (08:07)
[2017-04-17] MEDS: amLODIPine BESYLATE 5 MG TAB PO SCH (08:08)
--- NOTE | 2017-04-17 08:23 | HHI.PR ---
Subjective Remarks resting comfortably with no distress. no fever. pain to the right shoulder is better today. d/w the RN. Objective Vitals Vital Signs Date Time Temp Pulse Resp B/P Pulse Ox O2 Delivery O2 Flow Rate FiO2 04/17/17 04:00 72 04/17/17 04:00 97.9 76 19 159/77 97 04/17/17 00:22 78 04/17/17 00:00 98.9 70 20 170/81 98 04/16/17 20:06 73 04/16/17 20:00 97.6 76 20 169/87 96 04/16/17 16:17 96.5 82 21 176/83 99 04/16/17 12:15 97.0 81 21 180/77 96 04/16/17 08:39 98.2 76 21 194/93 97 I/O 04/16/17 04/16/17 04/16/17 04/17/17 04/17/17 04/17/17 06:59 14:59 22:59 06:59 14:59 22:59 Intake Total 120 ml 1680 ml 480 ml 240 ml Output Total 600 ml 1050 ml 600 ml 875 ml Balance -480 ml 630 ml -120 ml -635 ml Intake Oral 120 ml 480 ml 480 ml 240 ml IV Total 1200 ml Output Urine Total 600 ml 1050 ml 600 ml 875 ml # Bowel Movements 1 Result Diagram: 04/15/17 0644 04/16/17 0539 Imaging Last Impressions Shoulder X-Ray 04/15/17 0000 Signed Impressions: Service Date/Time: Saturday, April 15, 2017 11:31 - CONCLUSION: No acute abnormality seen. There is hypertrophic change at the acromion, the acromioclavicular joint, and to a lesser degree around the greater tubercle. Ziyad Galvan MD Head CT 04/14/171821 Signed Impressions: Service Date/Time: Friday, April 14, 2017 18:46 - CONCLUSION: 1. No acute intracranial abnormality. 2. Chronic white matter changes. 3. 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 4. Sinus disease. Ziyad Peña MD Chest X-Ray 04/14/171821 Signed Impressions: Service Date/Time: Friday, April 14, 2017 18:18 - CONCLUSION: Minimal bibasilar consolidation. Ziyad Peña MD Pelvis X-Ray 04/14/17 0000 Signed Impressions: Service Date/Time: Friday, April 14, 2017 19:38 - CONCLUSION: Intact pelvis. Ziyad Peña MD Cervical Spine CT 04/14/17 0000 Signed Impressions: Service Date/Time: Friday, April 14, 2017 18:46 - CONCLUSION: Surgical and degenerative changes of the cervical spine as above again noted. No fracture or subluxation or other acute abnormality. Ziyad Peña MD Objective Remarks GENERAL: This is a well-nourished, well-developed patient, in no apparent distress. CARDIOVASCULAR: Regular rate and regular rhythm without murmurs, gallops, or rubs. RESPIRATORY: Clear to auscultation. Breath sounds equal bilaterally. No wheezes , rales, or rhonchi. GASTROINTESTINAL: Abdomen soft, non-tender, nondistended. Normal, active bowel sounds MUSCULOSKELETAL: Extremities without clubbing, cyanosis, or edema- some tenderness over the right shoulder- better ROM today. NEURO: Alert & Oriented x4 to person, place, time, situation. Moves all ext x4 Procedures none Medications and IVs Current Medications IV Flush 2 ml 2 ml UNSCH PRN IV FLUSH FLUSH AFTER USING IV ACCESS Last administered on 04/14/17 20:45; Start 04/14/17 at 18:30; Stop 04/14/17 at 21:17 ; Status DC Sodium Chloride (NS 1000 ml Inj) 1,000 ml @ 1,000 mls/hr Q1H IV Last administered on 04/14/17 18:22; Start 04/14/17 at 18:22; Stop 04/14/17 at 19:21 ; Status DC Morphine Sulfate (Morphine Inj) 4 mg ONCE ONCE IV PUSH Last administered on 19:15; Start 04/14/17 at 19:15; Stop 04/14/17 at 19:16; Status DC Aspirin (Aspirin Chew) 162 mg ONCE ONCE CHEW Last administered on 04/14/17 20 :00; Start 04/14/17 at 20:00; Stop 04/14/17 at 20:01; Status DC Nitroglycerin (Nitroglycerin 2% Oint) 1 inch ONCE ONCE TOPICAL Last administered on 04/14/17 20:00; Start 04/14/17 at 20:00; Stop 04/14/17 at 20:01 ; Status DC Sodium Chloride (NS Flush) 2 ml UNSCH PRN IV FLUSH FLUSH AFTER USING IV ACCESS ; Start 04/14/17 at 20:45 Sodium Chloride (NS Flush) 2 ml BID IV FLUSH ; Start 04/14/17 at 21:00 Naloxone HCl 0.4 mg 0.4 mg UNSCH PRN IV SEE LABEL COMMENTS; Start 04/14/17 at 20:45 Levofloxacin/ Dextrose 150 ml @ 100 mls/hr Q24H IV Last administered on 20:33; Start 04/14/17 at 22:00 Sodium Chloride (NS 1000 ml Inj) 1,000 ml @ 100 mls/hr Q10H IV Last administered on 04/17/17 00:31; Start 04/14/17 at 21:30 Acetaminophen (Tylenol) 650 mg Q4H PRN PO FEVER/PAIN 1-5; Start 04/15/17 at 08: 15 Acetaminophen/ Hydrocodone Bitart ([place] 5-325 Mg) 1 tab Q6H PRN PO PAIN 6-10 Last administered on 04/17/17 08:07; Start 04/15/17 at 08:15 Enoxaparin Sodium (Lovenox Inj) 40 mg Q24H SQ Last administered on 04/17/17 08 :07; Start 04/15/17 at 09:00 Amlodipine Besylate (Norvasc) 5 mg DAILY PO Last administered on 04/17/17 08: 08; Start 04/16/17 at 13:00 Enalaprilat (Vasotec Inj) 1.25 mg Q8H PRN IV PUSH SBP> OR = 180, DBP> OR = 100 ; Start 04/16/17 at 11:45 Diphenhydramine HCl (Benadryl) 25 mg ONCE ONCE PO Last administered on 00:29; Start 04/17/17 at 00:00; Stop 04/17/17 at 00:01; Status DC A/P Assessment and Plan A/P - fall with Rhabdomyolysis fall precautions- consulted PT- continue IV fluid and monitor the renal function and CPK level -mild elevation of troponin with no chest pain or acute St-T changes-likely due to the fall and rhabdo- -right shoulder pain; XR of the right shoulder with no acute abnormality- continue pain control- consult OT. -Pneumoniawith chest x-ray evidence of bilateral consolidations; continue antibiotics- -DVT prophylaxis with Lovenox Discharge Planning dc planning to SNF within the next 24 hrs if stable- pending the CPK level trend. Milton Singh MD Apr 17, 2017 08:23
[2017-04-17] MEDS ORDERED: HYDR-3366 PO (08:27)
[2017-04-17] MEDS ORDERED: LEVO500T8 PO (08:27)
[2017-04-17] MEDS: SODIUM CHLORIDE 0.9% FLUSH 10 ML FLUSH IV FLUSH SCH ×2 (09:00→21:00)
[2017-04-17] MEDS: PRAVASTATIN SOD 20 MG TAB PO SCH (09:00)
[2017-04-17] MEDS: LISINOPRIL 20 MG TAB PO SCH (09:46)
[2017-04-17] MEDS: GABAPENTIN 300 MG CAP PO SCH ×3 (09:46→17:49)
[2017-04-17 10:50] LABS: CKMB 6.3 NG/ML (0.5-3.6)
[2017-04-17] MEDS ORDERED: ACETAMINOPHEN/HYDROcodone 325 MG/5 MG TAB PO PRN (19:44)
[2017-04-17] MEDS: LEVOFLOXACIN 750 MG PREMIX INJ 150 ML IV SCH (21:01)
[2017-04-17] MEDS ORDERED: diphenhydrAMINE HCL 25 MG CAP PO ONE ×2 (21:15)
[2017-04-18] VITALS: BP 157/85; PULSE 69; RESP 16; TEMP 97.6; O2SAT 98
[2017-04-18 00:03] VITALS: PULSE 74
[2017-04-18] MEDS: SODIUM CHLOR 0.9% 1000 ML INJ 1,000 ML IV SCH ×2 (00:08→05:30)
[2017-04-18 04:00] VITALS: BP 155/81; PULSE 71; PULSE 77; RESP 16; TEMP 99.6; O2SAT 96
[2017-04-18 08:00] VITALS: BP 127/79; PULSE 79; RESP 18; TEMP 99.9; O2SAT 98
--- NOTE | 2017-04-18 08:08 | HHI.PR ---
Subjective Remarks f/u; rhabdo/ pneumonia resting comfortably with no distress. pain to the right shoulder is better. no fever. d/w the RN and no acute issues over night. Objective Vitals Vital Signs Date Time Temp Pulse Resp B/P Pulse Ox O2 Delivery O2 Flow Rate FiO2 04/18/17 04:00 99.6 77 16 155/81 96 04/18/17 04:00 71 04/18/17 00:03 74 04/18/17 00:00 97.6 69 16 157/85 98 04/17/17 20:06 72 04/17/17 20:00 97.2 77 16 155/81 98 04/17/17 16:31 73 04/17/17 16:00 97.2 75 18 138/78 97 04/17/17 16:00 16 04/17/17 12:00 98.0 76 16 158/82 98 04/17/17 08:21 77 I/O 04/17/17 04/17/17 04/17/17 04/18/17 04/18/17 04/18/17 06:59 14:59 22:59 06:59 14:59 22:59 Intake Total 240 ml 1509 ml 2245 ml Output Total 875 ml 1500 ml 1035 ml 1400 ml Balance -635 ml 9 ml -1035 ml 845 ml Intake Oral 240 ml 640 ml 650 ml IV Total 869 ml 1595 ml Output Urine Total 875 ml 1500 ml 1035 ml 1400 ml # Bowel Movements 0 0 Result Diagram: 04/15/17 0644 04/16/17 0539 Imaging Last Impressions Shoulder X-Ray 04/15/17 0000 Signed Impressions: Service Date/Time: Saturday, April 15, 2017 11:31 - CONCLUSION: No acute abnormality seen. There is hypertrophic change at the acromion, the acromioclavicular joint, and to a lesser degree around the greater tubercle. Ziyad Galvan MD Head CT 04/14/171821 Signed Impressions: Service Date/Time: Friday, April 14, 2017 18:46 - CONCLUSION: 1. No acute intracranial abnormality. 2. Chronic white matter changes. 3. 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 4. Sinus disease. Ziyad Peña MD Chest X-Ray 04/14/171821 Signed Impressions: Service Date/Time: Friday, April 14, 2017 18:18 - CONCLUSION: Minimal bibasilar consolidation. Ziyad Peña MD Pelvis X-Ray 04/14/17 0000 Signed Impressions: Service Date/Time: Friday, April 14, 2017 19:38 - CONCLUSION: Intact pelvis. Ziyad Peña MD Cervical Spine CT 04/14/17 0000 Signed Impressions: Service Date/Time: Friday, April 14, 2017 18:46 - CONCLUSION: Surgical and degenerative changes of the cervical spine as above again noted. No fracture or subluxation or other acute abnormality. Ziyad Peña MD Objective Remarks GENERAL: This is a well-nourished, well-developed patient, in no apparent distress. CARDIOVASCULAR: Regular rate and regular rhythm without murmurs, gallops, or rubs. RESPIRATORY: Clear to auscultation. Breath sounds equal bilaterally. No wheezes , rales, or rhonchi. GASTROINTESTINAL: Abdomen soft, non-tender, nondistended. Normal, active bowel sounds MUSCULOSKELETAL: Extremities without clubbing, cyanosis, or edema- some tenderness over the right shoulder- better ROM today. NEURO: Alert & Oriented x4 to person, place, time, situation. Moves all ext x4 Procedures none Medications and IVs Current Medications IV Flush 2 ml 2 ml UNSCH PRN IV FLUSH FLUSH AFTER USING IV ACCESS Last administered on 04/14/17 20:45; Start 04/14/17 at 18:30; Stop 04/14/17 at 21:17 ; Status DC Sodium Chloride (NS 1000 ml Inj) 1,000 ml @ 1,000 mls/hr Q1H IV Last administered on 04/14/17 18:22; Start 04/14/17 at 18:22; Stop 04/14/17 at 19:21 ; Status DC Morphine Sulfate (Morphine Inj) 4 mg ONCE ONCE IV PUSH Last administered on 19:15; Start 04/14/17 at 19:15; Stop 04/14/17 at 19:16; Status DC Aspirin (Aspirin Chew) 162 mg ONCE ONCE CHEW Last administered on 04/14/17 20 :00; Start 04/14/17 at 20:00; Stop 04/14/17 at 20:01; Status DC Nitroglycerin (Nitroglycerin 2% Oint) 1 inch ONCE ONCE TOPICAL Last administered on 04/14/17 20:00; Start 04/14/17 at 20:00; Stop 04/14/17 at 20:01 ; Status DC Sodium Chloride (NS Flush) 2 ml UNSCH PRN IV FLUSH FLUSH AFTER USING IV ACCESS ; Start 04/14/17 at 20:45 Sodium Chloride (NS Flush) 2 ml BID IV FLUSH ; Start 04/14/17 at 21:00 Naloxone HCl 0.4 mg 0.4 mg UNSCH PRN IV SEE LABEL COMMENTS; Start 04/14/17 at 20:45 Levofloxacin/ Dextrose 150 ml @ 100 mls/hr Q24H IV Last administered on 21:01; Start 04/14/17 at 22:00 Sodium Chloride (NS 1000 ml Inj) 1,000 ml @ 100 mls/hr Q10H IV Last administered on 04/18/17 00:08; Start 04/14/17 at 21:30 Acetaminophen (Tylenol) 650 mg Q4H PRN PO FEVER/PAIN 1-5; Start 04/15/17 at 08: 15 Acetaminophen/ Hydrocodone Bitart ([place] 5-325 Mg) 1 tab Q6H PRN PO PAIN 6-10 Last administered on 04/17/17 14:50; Start 04/15/17 at 08:15; Stop 04/17/17 at 19:44; Status DC Enoxaparin Sodium (Lovenox Inj) 40 mg Q24H SQ Last administered on 04/17/17 08 :07; Start 04/15/17 at 09:00 Amlodipine Besylate (Norvasc) 5 mg DAILY PO Last administered on 04/17/17 08: 08; Start 04/16/17 at 13:00; Status Hold Enalaprilat (Vasotec Inj) 1.25 mg Q8H PRN IV PUSH SBP> OR = 180, DBP> OR = 100 ; Start 04/16/17 at 11:45 Diphenhydramine HCl (Benadryl) 25 mg ONCE ONCE PO Last administered on 00:29; Start 04/17/17 at 00:00; Stop 04/17/17 at 00:01; Status DC Gabapentin (Neurontin) 300 mg TID PO Last administered on 04/17/17 17:49; Start 04/17/17 at 09:00 Lisinopril (Prinivil) 20 mg DAILY PO Last administered on 04/17/17 09:46; Start 04/17/17 at 09:00 Pravastatin Sodium (Pravachol) 20 mg DAILY PO ; Start 04/17/17 at 09:00 Acetaminophen/ Hydrocodone Bitart ([place] 5-325 Mg) 1 tab Q4H PRN PO PAIN 6-10 Last administered on 04/17/17 21:03; Start 04/17/17 at 19:44 Diphenhydramine HCl (Benadryl) 25 mg ONCE ONCE PO Last administered on 00:06; Start 04/17/17 at 21:15; Stop 04/17/17 at 21:16; Status DC A/P Assessment and Plan A/P - fall with Rhabdomyolysis fall precautions- consulted PT- received IV fluid- CPK trended down. -mild elevation of troponin with no chest pain or acute St-T changes-likely due to the fall and rhabdo- -right shoulder pain; XR of the right shoulder with no acute abnormality- continue pain control- consulted OT. -Pneumoniawith chest x-ray evidence of bilateral consolidations; continue antibiotics- -DVT prophylaxis with Lovenox Discharge Planning dc planning to SNF today- pending the CPK level. see med list. f/u; pcp. d/w the patient and RN. time spent 31 min. Milton Singh MD Apr 18, 2017 08:08
[2017-04-18] MEDS ORDERED: HYDR-3288 PO (08:13)
--- NOTE | 2017-04-18 08:14 | HHI.DCPOC ---
Discharge Care Plan Diagnosis: (1) Fall Your Health Problems Are: Difficulty with ADL Goals to Promote Your Health * To prevent worsening of your condition and complications * To maintain your health at the optimal level Directions to Meet Your Goals Take your medications as prescribed Follow your dietary instruction Follow activity as directed Keep your appointments as scheduled Take your immunizations and boosters as scheduled If your symptoms worsen call your PCP, if no PCP go to Urgent Care Center or Emergency Room Smoking is Dangerous to Your Health. Avoid second hand smoke Call the 24-hour hour crisis hotline for domestic abuse at Milton Singh MD Apr 18, 2017 08:13
[2017-04-18] MEDS: GABAPENTIN 300 MG CAP PO SCH ×3 (08:42→18:17)
[2017-04-18] MEDS: ENOXAPARIN SODIUM 40 MG/0.4 ML SYRINGE SQ SCH (08:42)
[2017-04-18] MEDS: PRAVASTATIN SOD 20 MG TAB PO SCH (08:42)
[2017-04-18] MEDS: LISINOPRIL 20 MG TAB PO SCH (08:42)
[2017-04-18] MEDS: ACETAMINOPHEN/HYDROcodone 325 MG/7.5 MG TAB PO PRN ×2 (08:44→13:18)
[2017-04-18] MEDS: SODIUM CHLORIDE 0.9% FLUSH 10 ML FLUSH IV FLUSH SCH (09:00)
[2017-04-18 10:10] LABS: CKMB 2.2 NG/ML (0.5-3.6)
--- NOTE | 2017-04-18 10:53 | HHI.DS ---
Discharge Summary Admission Date Apr 14, 2017 at 20:21 Discharge Date: Apr 18, 2017 Admitting Diagnosis Fall, Rhabdomyolysis, generalized weakness (1) Generalized weakness ICD Code: R53.1 Diagnosis: Principal (2) Rhabdomyolysis ICD Code: M62.82 Diagnosis: Principal (3) Fall ICD Code: W19.XXXA Diagnosis: Principal Procedures none Brief History - From Admission History from patient, ER physician communication, and review of medical records. Patient reported that he had fallen down at home and was not able to get up. He initially told me that he was walking to the bathroom and fell backwards and hit his head. Later he stated he may have fallen from the bed itself. He denies being on blood thinners. He however does not remember the exact names and doses of his medications. He states he takes lisinopril. He denies any premonitory symptoms prior to the fall such as chest pain/ palpitations/dizziness/visual disturbance/focal weakness. He denies tripping on anything that he could be collapsed. He reports he missed a pain on the floor for more than 12 hours. He states his sister called 911. Patient states that he was taught able to get up from the floor at all. He thinks he is weak all over. He states he usually uses a walker. He lives alone. Apart from the above, patient denies any recent fever/nausea/vomiting/diarrhea/ urinary burning or pain on urination. He denies any hematemesis/hematochezia/melena/hematuria. He does report of cough. He is noted to be coughing during examination as well. He reports that his cough is yellowish and greenish in color. CBC/BMP: 04/15/17 0644 04/16/17 0539 Significant Findings Laboratory Tests Test 04/15/17 04/16/17 04/17/17 04/18/17 14:10 05:39 09:08 06:48 Troponin I 0.09 NG/ML (0.02-0.05) Estimat Glomerular Filtration 87 ML/MIN (>89) Rate Calcium Level 7.7 MG/DL (8.5-10.1) Total Creatine Kinase 3328 U/L 2260 U/L 1410 U/L (39-308) (39-308) (39-308) Creatine Kinase MB 26.7 NG/ML 6.3 NG/ML (0.5-3.6) (0.5-3.6) Imaging Last Impressions Shoulder X-Ray 04/15/17 0000 Signed Impressions: Service Date/Time: Saturday, April 15, 2017 11:31 - CONCLUSION: No acute abnormality seen. There is hypertrophic change at the acromion, the acromioclavicular joint, and to a lesser degree around the greater tubercle. Ziyad Galvan MD Head CT 04/14/171821 Signed Impressions: Service Date/Time: Friday, April 14, 2017 18:46 - CONCLUSION: 1. No acute intracranial abnormality. 2. Chronic white matter changes. 3. 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 4. Sinus disease. Ziyad Peña MD Chest X-Ray 04/14/171821 Signed Impressions: Service Date/Time: Friday, April 14, 2017 18:18 - CONCLUSION: Minimal bibasilar consolidation. Ziyad Peña MD Pelvis X-Ray 04/14/17 0000 Signed Impressions: Service Date/Time: Friday, April 14, 2017 19:38 - CONCLUSION: Intact pelvis. Ziyad Peña MD Cervical Spine CT 04/14/17 0000 Signed Impressions: Service Date/Time: Friday, April 14, 2017 18:46 - CONCLUSION: Surgical and degenerative changes of the cervical spine as above again noted. No fracture or subluxation or other acute abnormality. Ziyad Peña MD PE at Discharge GENERAL: This is a well-nourished, well-developed patient, in no apparent distress. CARDIOVASCULAR: Regular rate and regular rhythm without murmurs, gallops, or rubs. RESPIRATORY: Clear to auscultation. Breath sounds equal bilaterally. No wheezes , rales, or rhonchi. GASTROINTESTINAL: Abdomen soft, non-tender, nondistended. Normal, active bowel sounds MUSCULOSKELETAL: Extremities without clubbing, cyanosis, or edema- some tenderness over the right shoulder- better ROM today. NEURO: Alert & Oriented x4 to person, place, time, situation. Moves all ext x4 Hospital Course - fall with Rhabdomyolysis fall precautions- consulted PT- received IV fluid- CPK trended down. -mild elevation of troponin with no chest pain or acute St-T changes-likely due to the fall and rhabdo- -right shoulder pain; XR of the right shoulder with no acute abnormality- continue pain control- consulted OT. -Pneumoniawith chest x-ray evidence of bilateral consolidations; continue antibiotics- -DVT prophylaxis with Lovenox Pt Condition on Discharge: Fair Discharge Disposition: Discharge to SNF Discharge Time: > 30 minutes Discharge Instructions DIET: Follow Instructions for: Heart Healthy Diet Activities you can perform: Regular-No Restrictions Follow up Referrals: PCP Follow-up New Medications: Hydrocodone-Acetaminophen ([place]) 7.5-325 mg Tab 1 TAB PO Q4H PRN PAIN #15 Ref 0 TAB Levofloxacin (Levofloxacin) 500 Mg Tablet 500 MG PO DAILY Infection #5 Ref 0 TAB Continued Medications: Gabapentin (Neurontin) 300 Mg Cap 300 MG PO TID #90 Ref 0 CAP Lisinopril (Lisinopril) 20 Mg Tab 20 MG PO DAILY #30 Ref 0 TAB Simvastatin (Simvastatin) 10 Mg Tab 10 MG PO DAILY Cholesterol Management #30 Ref 0 TAB Milton Singh MD Apr 18, 2017 10:53
[2017-04-18 12:00] VITALS: BP 121/78; PULSE 82; RESP 20; TEMP 98.5; O2SAT 99
[2017-04-18 16:00] VITALS: BP 125/78; PULSE 81; RESP 18; TEMP 98.8; O2SAT 99
== END 2017-04-18 18:50 | DRG 564 ==
LOC: NEPC 17:46 → NEDA 20:21 → HOCA 22:35
PROVIDERS: ADMIT Hospitalist; ATTEND Hospitalist
DX: T79.6XXA Traumatic ischemia of muscle, initial encounter (principal); J18.9 Pneumonia, unspecified organism; I10 Essential (primary) hypertension; H91.90 Unspecified hearing loss, unspecified ear; F17.210 Nicotine dependence, cigarettes, uncomplicated; E78.5 Hyperlipidemia, unspecified; W18.39XA Other fall on same level, initial encounter; M25.511 Pain in right shoulder
CPT/HCPCS: 70450; 71010; 72125; 72170; 73030; 80048; 80053; 81001; 82550; 82552; 84484; 85025; 85610; 93005; 96361; 96374; J1650; J1956; J2270; J7030

== ENCOUNTER 2017-05-12 19:04 | Emergency (ER) | payer MEDICARE, MEDICAID ==
[~2017-05-12] VITALS: Ht 172.7 cm; Wt 78.0 kg
[~2017-05-12 19:04] MED LIST changes: -AMBI5TAB PO; -ATOR10 PO; -GABA300C3 PO; -HYDR-3129 PO; +HYDR-3288 PO; +LEVO500T8 PO; +LISI-515 PO; -LISI10 PO; -NEUR100C PO; +NEUR300C PO; -PERC10TA27 PO; -PROT40TA PO; +SIMV10TA PO
[2017-05-12 19:15] VITALS: BP 197/97; PULSE 64; RESP 18; TEMP 98.6; O2SAT 98
[2017-05-12] MEDS ORDERED: SODIUM CHLOR 0.9% 1000 ML INJ 1,000 ML IV SCH (19:24)
[2017-05-12] MEDS ORDERED: SODIUM CHLORIDE 0.9% FLUSH 5 ML FLUSH IV FLUSH PRN (19:30)
[2017-05-12] MEDS ORDERED: ACETAMINOPHEN 325 MG TAB PO ONE (19:30)
[2017-05-12] MEDS ORDERED: TETANUS/DIPHTHERIA TOXOID ADULT 0.5 ML VIAL IM ONE (19:30)
--- NOTE | 2017-05-12 19:50 | RADRPT ---
EXAM DATE/TIME: 05/12/2017 19:44 [facility] COMPARISON: CHEST SINGLE AP, April 14, 2017, 18:18. INDICATIONS : Syncopale episode. MEDICAL HISTORY : Hypercholesterolemia. Hypertension SURGICAL HISTORY : None. ENCOUNTER: Initial ACUITY: 1 day PAIN SCORE: Non-responsive. LOCATION: Bilateral chest FINDINGS: A single view of the chest demonstrates the lungs to be symmetrically aerated without evidence of mas s, infiltrate or effusion. The cardiomediastinal contours are unremarkable. There is an anterior cer vical fusion plate in place. Spurs are seen in the thoracic spine. CONCLUSION: No acute disease. Ziyad Galvan MD on May 12, 2017 at 19:47 Board Certified Radiologist. This report was verified electronically.
--- NOTE | 2017-05-12 19:55 | PD ---
HPI . Fall Chief Complaint: Fall Time Seen by Provider: 19:20 Travel History International Travel<30 days: No Contact w/Intl Traveler<30days: No Traveled to known affect area: No History of Present Illness HPI This patient presents to us via [facility] after being found down in his home by a neighbor. Patient reports that he had just followed. The neighbor is unsure exactly how long he may have been down. The patient is complaining of pain in his right upper arm and left knee. The patient denies any other complaints. He describes his pain as constant, achy and rates it 8/10. PFSH Past Medical History Arthritis: Yes Asthma: No Blood Disorders: No Anxiety: No Depression: No Heart Rhythm Problems: No Cancer: No Cardiovascular Problems: Yes (HTN ) High Cholesterol: Yes Chemotherapy: No Chest Pain: No Congestive Heart Failure: No COPD: No Cerebrovascular Accident: Yes Diabetes: No Diminished Hearing: Yes ([place]) Endocrine: No Genitourinary: No Hypertension: Yes Immune Disorder: No Musculoskeletal: Yes (ARTHRITIS ) Neurologic: Yes (IN PT'S CHART IT STATES HX OF CVA, FAMILY DENIES) Psychiatric: No Reproductive: No Respiratory: No Radiation Therapy: No Sleep Apnea: No Thyroid Disease: No Tetanus Vaccination: > 5 Years Influenza Vaccination: No Past Surgical History Other Surgery: Yes Social History Alcohol Use: No Tobacco Use: Yes (1 pack per week) Substance Use: No Allergies-Medications (Allergen,Severity, Reaction): Coded Allergies: prednisone (Unverified Allergy, Severe, HICCUPING, 05/12/17) penicillin G (Unverified Allergy, Mild, Hives, 05/12/17) Reported Meds & Prescriptions Reported Meds & Active Scripts Active [place] (Hydrocodone-Acetaminophen) 7.5-325 mg Tab 1 Tab PO Q4H PRN Reported Neurontin (Gabapentin) 300 Mg Cap 300 Mg PO TID Simvastatin 10 Mg Tab 10 Mg PO DAILY Lisinopril 20 Mg Tab 20 Mg PO DAILY Review of Systems Except as stated in HPI: all other systems reviewed are Neg General / Constitutional: No: Fever, Chills Eyes: No: Blurred Vision HENT: No: Headaches Cardiovascular: No: Chest Pain or Discomfort Respiratory: No: Shortness of Breath Gastrointestinal: No: Nausea, Vomiting, Diarrhea, Abdominal Pain Genitourinary: No: Urgency, Frequency, Dysuria Musculoskeletal: Positive: Myalgias, No: Limited ROM Skin: Positive Other (abrasion, left knee) Neurologic: Positive: Weakness Physical Exam Narrative GENERAL: Patient looks a little sleepy. He does not appear to be in any acute distress. SKIN: warm/dry. Superficial abrasion, left knee. HEAD: Normocephalic. Atraumatic. EYES: Pupils equal and round. No scleral icterus. No injection or drainage. ENT: No nasal bleeding or discharge. Mucous membranes pink and moist. NECK: Trachea midline. Full range of motion without pain.. CARDIOVASCULAR: Regular rate and rhythm. Heart sounds are normal. RESPIRATORY: No accessory muscle use. Clear to auscultation. Breath sounds equal bilaterally. GASTROINTESTINAL: Abdomen soft. Nontender. Bowel sounds present. Nondistended. MUSCULOSKELETAL: No obvious deformities. He has some tenderness in the right biceps. Full range of motion of all 4 extremities. No apparent long bone injuries. NEUROLOGICAL: Awake and alert. Sleepy. No obvious cranial nerve deficits. Motor grossly within normal limits. Normal speech. PSYCHIATRIC: Appropriate mood and affect; insight and judgment normal. Data Data Last Documented VS Vital Signs Date Time Temp Pulse Resp B/P (MAP) Pulse Ox O2 Delivery O2 Flow Rate FiO2 05/12/17 19:19 60 18 98 Room Air 05/12/17 19:15 98.6 197/97 (130) Orders Orders Electrocardiogram (05/12/17 19:24) Complete Blood Count With Diff (05/12/17 19:24) Comprehensive Metabolic Panel (05/12/17 19:24) Troponin I (05/12/17 19:24) Urinalysis - C+S If Indicated (05/12/17:24) Lactic Acid Sepsis Protocol (05/12/17 19:24) Blood Culture (05/12/17 19:24) Chest, Single Ap (05/12/17 19:24) Ct Brain W/O Iv Contrast(Rout) (05/12/17 19:24) Ecg Monitoring (05/12/17 19:24) Iv Access Insert/Monitor (05/12/17 19:24) Cath For Specimen (05/12/17 19:24) Oximetry (05/12/17 19:24) Sodium Chloride 0.9% Flush (Ns Flush) (05/12/17 19:30) Sodium Chlor 0.9% 1000 Ml Inj (Ns 1000 M (05/12/17 19:24) Tetanus/Diphtheria Tox Adult (Tetanus/Di (05/12/17 19:30) Acetaminophen (Tylenol) (05/12/17 19:30) Creatine Kinase (Cpk) (05/12/17 19:24) Urine Culture (05/12/17 20:15) CKMB (05/12/17 19:20) CKMB% (05/12/17 19:20) Labs Laboratory Tests Test 05/12/17 19:20 05/12/17 20:00 05/12/17 20:15 White Blood Count 6.6 TH/MM3 Red Blood Count 3.99 MIL/MM3 Hemoglobin 11.1 GM/DL Hematocrit 33.4 % Mean Corpuscular Volume 83.6 FL Mean Corpuscular Hemoglobin 27.8 PG Mean Corpuscular Hemoglobin Concent 33.2 % Red Cell Distribution Width 14.8 % Platelet Count 185 TH/MM3 Mean Platelet Volume 9.4 FL Neutrophils (%) (Auto) 51.8 % Lymphocytes (%) (Auto) 36.3 % Monocytes (%) (Auto) 10.6 % Eosinophils (%) (Auto) 1.0 % Basophils (%) (Auto) 0.3 % Neutrophils # (Auto) 3.4 TH/MM3 Lymphocytes # (Auto) 2.4 TH/MM3 Monocytes # (Auto) 0.7 TH/MM3 Eosinophils # (Auto) 0.1 TH/MM3 Basophils # (Auto) 0.0 TH/MM3 CBC Comment DIFF FINAL Differential Comment Blood Urea Nitrogen 22 MG/DL Creatinine 1.10 MG/DL Random Glucose 76 MG/DL Total Protein 7.7 GM/DL Albumin 3.5 GM/DL Calcium Level 9.2 MG/DL Alkaline Phosphatase 77 U/L Aspartate Amino Transf (AST/SGOT) 38 U/L Alanine Aminotransferase (ALT/SGPT) 31 U/L Total Bilirubin 0.5 MG/DL Sodium Level 143 MEQ/L Potassium Level 3.5 MEQ/L Chloride Level 107 MEQ/L Carbon Dioxide Level 25.7 MEQ/L Anion Gap 10 MEQ/L Estimat Glomerular Filtration Rate 80 ML/MIN Total Creatine Kinase 380 U/L Troponin I LESS THAN 0.02 NG/ML Lactic Acid Level 1.1 mmol/L Urine Color LIGHT-YELLOW Urine Turbidity CLEAR Urine pH 6.5 Urine Specific [place] 1.009 Urine Protein NEG mg/dL Urine Glucose (UA) NEG mg/dL Urine Ketones 10 mg/dL Urine Occult Blood NEG Urine Nitrite NEG Urine Bilirubin NEG Urine Urobilinogen LESS THAN 2.0 MG/DL Urine Leukocyte Esterase NEG Urine RBC LESS THAN 1 /hpf Urine WBC 1 /hpf Urine Bacteria RARE /hpf Urine Mucus FEW /lpf Microscopic Urinalysis Comment CATH-CULTURE IND MDM Medical Decision Making Medical Screen Exam Complete: Yes Emergency Medical Condition: Yes Interpretation(s) EKG shows a sinus rhythm and LVH. Differential Diagnosis Differential diagnosis of altered mental status includes but is not limited to infection, electrolyte abnormality, neurological event, intoxication Narrative Course This patient presents status post a fall at home. We do not know for sure how long he was down. He also appears a little bit sleepy. He will be worked up for altered mental status. He will also be worked up for possible rhabdomyolysis. CBC & BMP Diagram 05/12/17 19:20 Total Protein 7.7, Albumin 3.5, Calcium Level 9.2, Alkaline Phosphatase 77, Aspartate Amino Transf (AST/SGOT) 38 H, Alanine Aminotransferase (ALT/SGPT) 31, Total Bilirubin 0.5 CK is 380. Troponin is < 0.02. Lactic acid was 1.1. UA is negative for infection. Last Impressions Head CT 05/12/171923 Signed Impressions: Service Date/Time: Friday, May 12, 2017 19:47 - CONCLUSION: 1. Stable old infarcts involving the right frontal lobe and right posteromedial cerebellum. 2. Moderate periventricular and subcortical white matter small vessel ischemic changes bilaterally. 3. No acute infarct, acute hemorrhage, midline shift or extra-axial fluid collections. Yinka Mcgee MD Chest X-Ray 05/12/171923 Signed Impressions: Service Date/Time: Friday, May 12, 2017 19:44 - CONCLUSION: No acute disease. Ziyad Galvan MD This patient is stable for discharge to home. Diagnosis Primary Impression: Fall Qualified Codes: W19.XXXA - Unspecified fall, initial encounter Patient Instructions: Fall Prevention (DC), General Instructions Disposition: DISCHARGE HOME Condition: Stable Adela Cuevas MD May 12, 2017 19:55
--- NOTE | 2017-05-12 20:03 | RADRPT ---
EXAM DATE/TIME: 05/12/2017 19:47 [facility] COMPARISON: CT BRAIN W/O CONTRAST, April 14, 2017, 18:46. INDICATIONS : Fall. Altered mental status. RADIATION DOSE: 53.27 CTDIvol (mGy) MEDICAL HISTORY : Cerebrovascular disease. Hypertension. SURGICAL HISTORY : Fusion, cervical. ENCOUNTER: Initial ACUITY: 1 day PAIN SCALE: 0/10 LOCATION: Cranial TECHNIQUE: Multiple contiguous axial images were obtained of the head. Using automated exposure control and adj ustment of the mA and/or kV according to patient size, radiation dose was kept as low as reasonably a chievable to obtain optimal diagnostic quality images. DICOM format image data is available electro nically for review and comparison. FINDINGS: Old infarcts involving the right frontal lobe and right posteromedial cerebellum are stable. Moderate periventricular and subcortical white matter small vessel ischemic changes are note d bilaterally. There is no acute infarct, acute hemorrhage, midline shift or extra-axial fluid collections. The antonio tricles, sulci and cisterns are stable. The bone windows are unremarkable. CONCLUSION: 1. Stable old infarcts involving the right frontal lobe and right posteromedial cerebellum. 2. Moderate periventricular and subcortical white matter small vessel ischemic changes bilaterally. 3. No acute infarct, acute hemorrhage, midline shift or extra-axial fluid collections. Yinka Mcgee MD on May 12, 2017 at 19:54 Board Certified Radiologist. This report was verified electronically.
[2017-05-12 20:11] LABS: AUTOMATED NEUTROPHIL # 3.4 TH/MM3 (1.8-7.7); BASOPHIL % 0.3 % (0.0-2.0); EOSINOPHIL # 0.1 TH/MM3 (0-0.4); HEMATOCRIT 33.4 % (39.0-51.0); HEMO FLAGS DIFF FINAL; LYMPH % 36.3 % (9.0-44.0); LYMPHOCYTE # 2.4 TH/MM3 (1.0-4.8); MEAN CELL VOLUME 83.6 FL (80.0-100.0); MEAN CORPUSCULAR HEMOGLOBIN 27.8 PG (27.0-34.0); MEAN CORPUSCULAR HGB CONC 33.2 % (32.0-36.0); MONO % 10.6 % (0.0-8.0); NEUT % 51.8 % (16.0-70.0); PLATELET COUNT 185 TH/MM3 (150-450); RED BLOOD COUNT 3.99 MIL/MM3 (4.50-5.90); RED CELL DISTRIBUTION WIDTH 14.8 % (11.6-17.2); WHITE BLOOD COUNT 6.6 TH/MM3 (4.0-11.0)
[2017-05-12 20:31] LABS: BACTERIA, URINE RARE /hpf; BLOOD, URINE NEG (NEG); GLUCOSE,URINE NEG (NEG); KETONE, URINE 10 mg/dL (NEG); MUCUS URINE FEW /lpf (OCC); NITRITE,URINE NEG (NEG); PH, URINE 6.5 (5.0-8.5); URINE COLOR LIGHT-YELLOW (YELLW/STRAW)
[2017-05-12 20:32] LABS: COMMENT (UR) CATH-CULTURE IND; CULTURE IF INDICATED CATH CULTURE IND
[2017-05-12 21:34] LABS: ALT (GPT) 31 U/L (12-78); ANION GAP 10 MEQ/L (5-15); AST (GOT) 38 U/L (15-37); BICARBONATE 25.7 MEQ/L (21.0-32.0); BLOOD UREA NITROGEN 22 MG/DL (7-18); CHLORIDE 107 MEQ/L (98-107); GLOMERULAR FILTRATION RATE 80 ML/MIN (>89); POTASSIUM 3.5 MEQ/L (3.5-5.1); SODIUM (NA) 143 MEQ/L (136-145)
[2017-05-12 21:39] LABS: ALKALINE PHOSPHATASE 77 U/L (45-117); CREATINE KINASE 380 U/L (39-308); TOTAL BILIRUBIN ADULT 0.5 MG/DL (0.2-1.0)
[2017-05-12 21:51] LABS: CKMB 2.1 NG/ML (0.5-3.6)
--- NOTE | 2017-05-13 14:02 | EKG ---
Date Performed: 05/12/2017 Time Performed: 20:05:45 PTAGE: 72 years EKG: Sinus rhythm with premature atrial contractions Left ventricular hypertrophy NONSPECIFIC ST & T-WAVE ABNORMALITY ABNORMAL ECG PREVIOUS TRACING : 04/14/2017 19.10 Since the prior tracing, sinus tachycardia is resolved. The re has been some variation in the ST-T wave changes in the setting of the left ventricular hypertroph y. The lateral ST segment depression has improved. Clinical correlation advised. DOCTOR: Nadira Brooks Interpretating Date/Time 05/13/2017 13:56:54
== END 2017-05-12 22:55 | disposition home or self-care (01) ==
LOC: NEPC 19:04
DX: M79.621 Pain in right upper arm (principal); M25.562 Pain in left knee; R94.31 Abnormal electrocardiogram [ECG] [EKG]; I10 Essential (primary) hypertension; B96.89 Other specified bacterial agents as the cause of diseases classified elsewhere; W19.XXXA Unspecified fall, initial encounter; Y92.009 Unspecified place in unspecified non-institutional (private) residence as the place of occurrence of the external cause; Z72.0 Tobacco use; Z23 Encounter for immunization; Z79.899 Other long term (current) drug therapy
CPT/HCPCS: 70450; 71010; 80053; 81001; 82550; 82552; 83605; 84484; 85025; 86403; 87040; 87077; 87086; 87149; 87186; 87205; 90471; 90714; 93005; 96360; 96361; 99285; J7030